=== PATIENT | female | born 1995 | race African-American/Black ===

== ENCOUNTER 2018-09-27 20:25 | Emergency (ER) | payer BC, OTHER ==
[~2018-09-27] VITALS: Ht 165.1 cm; Wt 51.7 kg
[~2018-09-27 20:25] MED LIST: NORCO 5-325 TA1 EACH PO
[2018-09-27] MEDS ORDERED: BENADRYL25 MG PO (20:32)
[2018-09-27 20:42] LABS: URINE BILIRUBIN NEGATIVE (Negative); URINE BLOOD 2+ (Negative); URINE CLARITY CLEAR; URINE COLOR YELLOW; URINE GLUCOSE-RANDOM* TRACE (Negative); URINE KETONES TRACE (Negative); URINE LEUKOCYTES-REFLEX NEGATIVE (Negative); URINE NITRITE-REFLEX NEGATIVE (Negative); URINE PROTEIN (DIPSTICK) NEGATIVE (Negative)
[2018-09-27 20:51] LABS: BACTERIA-REFLEX None Seen /HPF (None Seen); CASTS None Seen /LPF (None Seen); CRYSTALS None Seen /LPF (None Seen); MUCUS >6 Heavy strn/LPF (None Seen); SQUAMOUS 0-3 Few /LPF (0-3); URINE WBC-REFLEX None Seen /HPF (0-5); YEAST-REFLEX Present (None Seen)
[2018-09-27 21:23] LABS: AMP/METHAMP Negative (Negative); BARBITURATES Negative (Negative); BENZODIAZEPINES Negative (Negative); COCAINE Negative (Negative); METHADONE Negative (Negative); OPIATES Negative (Negative); PCP Negative (Negative)
[2018-09-27 21:38] LABS: BASOPHILS 0.8 % (0.0-2.0); EOSINOPHILS 1.6 % (0.0-3.0); HEMATOCRIT 39.4 % (37.0-47.0); HEMOGLOBIN 13.1 gm/dL (12.0-15.0); LYMPHOCYTES 36.9 % (24.0-44.0); MCH 31.2 pg (26.0-34.0); MCHC 33.2 g/dL (28.0-37.0); MCV 93.7 fL (80.0-100.0); MONOCYTES 8.3 % (1.0-8.0); PLATELET COUNT 290 thou/uL (150-400); POLYS 52.4 % (36.0-66.0); RDW 12.9 % (10.5-14.5); WBC 5.8 thou/uL (4.0-11.0)
[2018-09-27 21:45] LABS: CALCIUM 9.3 mg/dL (8.5-10.1); CREATININE 0.8 mg/dL (0.6-1.0); POTASSIUM 3.2 mmol/L (3.5-5.1)
[2018-09-27 21:51] LABS: ALBUMIN 4.2 g/dL (3.4-5.0); TOTAL BILIRUBIN 0.8 mg/dL (<0.1-1.0); TOTAL PROTEIN 8.1 g/dL (6.4-8.2)
[2018-09-27] MEDS ORDERED: BENTYL 20 MG TA20 M1 PO (22:14)
[2018-09-27] MEDS ORDERED: PEPCID40 MG PO (22:14)
[2018-09-27] MEDS ORDERED: ONDANSETRON HCL4 M2 PO (22:14)
[2018-09-27 22:29] VITALS: BP 115/74
== END 2018-09-27 22:33 | disposition home or self-care (01) ==
LOC: ER 20:25
PROVIDERS: Emergency Medicine
DX: R10.13 Epigastric pain (principal); R11.2 Nausea with vomiting, unspecified; G43.909 Migraine, unspecified, not intractable, without status migrainosus; Z79.899 Other long term (current) drug therapy